=== PATIENT | male | born 1980 | race Two or more races ===

== ENCOUNTER 2019-11-16 18:28 | Emergency (ER) | payer MEDICAID ==
[~2019-11-16] VITALS: Ht 180.3 cm; Wt 77.3 kg
[2019-11-16 20:30] VITALS: BP 126/81
== END 2019-11-16 20:54 | disposition left against medical advice (07) ==
LOC: EMS 18:30
DX: Z20.828 Contact with and (suspected) exposure to other viral communicable diseases (principal)
CPT/HCPCS: 87426; 99283; U0003